=== PATIENT | female | born 1990 | race Caucasian/White ===

== ENCOUNTER 2016-11-02 04:48 | Inpatient (IN) | payer OTHER ==
[~2016-11-02] VITALS: Ht 154.9 cm; Wt 73.4 kg
[2016-11-02] VITALS (18 sets, daily range): BP systolic 110–133; BP diastolic 62–83
[~2016-11-02 04:48] MED LIST: FLEXERIL10 MG PO; NAPROSYN500 MG PO; ULTRAM50 MG PO
[2016-11-02 06:29] LABS: EOSINOPHIL (%) 0.5 % (0-5); EOSINOPHIL COUNT 0.1 K/uL (0-0.3); HEMATOCRIT 36.6 % (36.0-46.0); IMMATURE GRANULOCYTE (%) 0.7 % (0.0-0.7); IMMATURE GRANULOCYTE COUNT 0.1 K/uL; LYMPHOCYTE COUNT 1.8 K/uL (1.0-2.8); MCH 30.3 PG (29.0-34.0); MCV 86.7 FL (83-99); MEAN PLAT.VOLUME 10.1 uM^3 (9.5-12.4); MONOCYTE (%) 6.1 % (3-12); MONOCYTE COUNT 0.8 K/uL (0-0.8); NEUTROPHIL (%) 78.6 % (45-76); NEUTROPHIL COUNT 10.4 K/uL (1.8-6.4); PLATELET COUNT 124 K/uL (156-360); RBC DIS.WIDTH-CV 13.2 % (11.8-14.6); RBC DIS.WIDTH-SD 41.4 % (39-53); RED BLOOD COUNT 4.22 M/uL (3.80-5.20); WHITE BLOOD COUNT 13.2 K/uL (4.1-10.2)
[2016-11-02] MEDS ORDERED: IBUPROFEN800 MG PO (13:23)
[2016-11-02] MEDS ORDERED: ENDOCET 5-3251 EACH PO (13:24)
[2016-11-03 07:50] VITALS: BP 119/70
[2016-11-03 15:10] VITALS: BP 134/80
[2016-11-03 23:03] VITALS: BP 113/67
[2016-11-04 07:36] VITALS: BP 114/78
== END 2016-11-04 12:15 | disposition home or self-care (01) | DRG 775 ==
LOC: LDRP-OP → 2WEST 04:49 → LDRP-OP 12-03 00:18
PROVIDERS: Nurse Practitioner
PROC: 0KQM0ZZ Repair Perineum Muscle, Open Approach (ICD-10-PCS; principal; 2016-11-02)
PROC: 10907ZC Drainage of Amniotic Fluid, Therapeutic from Products of Conception, Via Natural or Artificial Opening (ICD-10-PCS; principal; 2016-11-02)
PROC: 3E0S3CZ (ICD-10-PCS; principal; 2016-11-02)
PROC: 00HU33Z Insertion of Infusion Device into Spinal Canal, Percutaneous Approach (ICD-10-PCS; principal; 2016-11-02)
DX: O70.1 Second degree perineal laceration during delivery (principal); O69.1XX0 Labor and delivery complicated by cord around neck, with compression, not applicable or unspecified; Z3A.39 39 weeks gestation of pregnancy; Z37.0 Single live birth
CPT/HCPCS: 85025; C1755; J3010; J7120